=== PATIENT | female | born 1960 | race Caucasian/White ===

== ENCOUNTER 2021-07-06 05:32 | Day surgery (SDC) | payer OTHER | END 2021-07-07 11:38 | disposition home or self-care (01) | LOC: FAS 05:32 → FMS 08:32 | DX: M17.12 Unilateral primary osteoarthritis, left knee (principal); M25.762 Osteophyte, left knee; M67.262 Synovial hypertrophy, not elsewhere classified, left lower leg; F41.8 Other specified anxiety disorders; G43.909 Migraine, unspecified, not intractable, without status migrainosus; L40.9 Psoriasis, unspecified ==